=== PATIENT | male | born 1965 | race Caucasian/White ===

== ENCOUNTER 2017-07-25 09:33 | Inpatient (IN) ==
[2017-07-25 10:45] VITALS: BMI 27.5
[2017-07-25] MEDS ORDERED: VANCOMYCIN - PHARMACY CONSULT MC ONE (12:11)
--- NOTE | 2017-07-25 13:03 | Consult Note ---
<Sangeetha Knight V - Last Filed: 07/25/17 13:00> Consult Information - Data of Consult Consult date: 07/25/17 Requesting Physician: Kin Giron MD Primary Care Provider: None Family Provider: None - Consult Narrative Reason for consult: Medical management chronic tobacco and ETOH use History of present illness: Donovan is a 52 -year-old male who underwent a right great toe amputation through the MTP joint for chronic osteomyelitis under the care of Dr. Giron on 07/13/17. Postoperatively, he has been on Augmentin for further antimicrobial coverage. He has been following up outpatient at the wound center under the care of Dr. Giron and Dr. Scott. Today he presented to the orthopedic clinic for scheduled follow-up appointment with Barrett Paula. There was noted to be presence of increased drainage, swelling and erythema at the right great toe site. Foot was noted to have a foul odor. Given these changes. Patient was admitted directly under the care of Dr. Giron for further inpatient evaluation and treatment. The hospitalist services were consulted medical management of existing comorbidities. Patient is seen on initial consultation. He is alert, oriented and pleasant. He states he does not follow with any local primary care providers. He reports his only chronic medical condition. His neuropathy. He is a daily alcohol drinker as well as thirty-year history of tobacco dependence. [facility] Patient Stated Medical History Peripheral Neuropathy Hypertension- ? Chronic tobacco dependence Daily alcohol use Surgical History: Amputation Rt Big Toe 07-13-17 ([place]) Family History: Family History Mother- Alive and well Father Dementia Heart attack High blood pressure - Social History Smoking status: Current every day smoker Packs-years: 30 Substance use type: marijuana (occasional) Alcohol intake: current Alcohol intake frequency: 3 or more drinks per day Housing: house Social history: No PCP Review of Systems All systems PM: 10-point ROS was reviewed, no additional remarkable complaints except - Musculoskeletal Musculoskeletal: Present: as per HPI Musculoskeletal Comments: Right great toe- swelling, redness Medications Home Medications Medication Instructions Recorded Confirmed Type Multivitamin [One Daily] 1 each PO DAILY 07/04/17 07/25/17 History Allergies Allergy/AdvReac Type Severity Reaction Status Date / Time No Known Allergies Allergy Verified 07/25/17 10:46 Exam Vital Signs: Temperature 97.9 F 07/25/17 10:48 Pulse Rate 75 07/25/17 10:48 Respiratory Rate 16 07/25/17 10:48 Blood Pressure 161/95 H 07/25/17 10:48 Pulse Oximetry 99 07/25/17 10:48 Height/Weight/BMI: Height 1.83 m Weight 92.1 kg Body Mass Index 27.5 - Constitutional Present: no acute distress, well nourished, well developed - Routine HEENT Exam Eye: Present: EOMI ENT: Present: mucous membranes moist, dentition normal - Routine Neck Exam Present: full ROM - Routine Respiratory Exam Present: CTA bilaterally. Absent: wheezes - Routine Cardiovascular Exam Present: RRR, S1, S2. Absent: murmur - Routine Abdominal Exam Present: soft, normoactive bowel sounds, non distended. Absent: tenderness - Routine Extremities Exam Present: pulses intact, normal capillary refill Comments: Right great toe with dressing intact. - Routine Back/Spine/Pelvis Exam Back/Spine: Present: full ROM - Routine Skin Exam Present: intact, dry, warm - Routine Neurological Exam Present: alert, oriented X3, CN II-XII intact - Routine Psychiatric Exam Present: normal affect Results - Labs CBC & Chem 7: 07/25/17 12:05 07/25/17 12:05 Microbiology Results: Microbiology 07/25/17 12:05 Peripheral/Iv Start Blood Culture - Preliminary Culture Initiated - Results Pending 07/25/17 12:08 Peripheral/Iv Start Blood Culture - Preliminary Culture Initiated - Results Pending Assessment and Plan (1) Status post amputation of great toe Current visit: Yes Status: Acute (2) Wound infection Current visit: Yes Status: Acute DVT Prophylaxis: SCD's Resuscitation Status: Full Code Assessment and Plan: Impression Wound Infection- Right great toe S/P Right great toe amputation- 07/13/17 Neuropathy Chronic tobacco dependence Daily alcohol use Plan Orthopedic management as per Dr. Giron Obtain CBC, CMP, blood culture 2, venous lactate, pro calcitonin, Hgb A1C and urinalysis on admission. Will initiate antibiotic coverage including vancomycin and cefepime. Wound culture reviewed from 07/13 that was positive for Pseudomonas and Corynebacterium species. Old culture from April 2017 was positive for both strep and staph. Honeydew as needed for pain control Nicotine patch topically in light of chronic tobacco use. Monitor for evidence of ETOH withdrawal. Patient is a daily drinker however denies any history of withdrawal symptoms. NPO after midnight as Dr Giron is planning further surgical evaluation and wound care. Recheck CBC and BMP tomorrow morning to follow blood counts, renal function and electrolytes. Will consult CM to assist with establishing care with PCP in the outpatient setting. Hospital Course Summary Disclaimer: The visit summary below is not to be considered part of the above Progress Note. Hospital Course: 07/25/17 Impression Wound Infection- Right great toe S/P Right great toe amputation- 07/13/17 Neuropathy Chronic tobacco dependence Daily alcohol use Plan Orthopedic management as per Dr. Giron Obtain CBC, CMP, blood culture 2, venous lactate, pro calcitonin, Hgb A1C and urinalysis on admission. Will initiate antibiotic coverage including vancomycin and cefepime. Wound culture reviewed from 07/13 that was positive for Pseudomonas and Corynebacterium species. Old culture from April 2017 was positive for both strep and staph. Honeydew as needed for pain control Nicotine patch topically in light of chronic tobacco use. Monitor for evidence of ETOH withdrawal. Patient is a daily drinker however denies any history of withdrawal symptoms. NPO after midnight as Dr Giron is planning further surgical evaluation and wound care. Recheck CBC and BMP tomorrow morning to follow blood counts, renal function and electrolytes. Will consult CM to assist with establishing care with PCP in the outpatient setting. <Roc Green - Last Filed: 07/25/17 14:48> Consult Information - Data of Consult Requesting Physician: Kin Giron MD [facility] Patient Stated Medical History Peripheral Neuropathy Yes Hypertension Yes: pre op Chronic Obstructive Pulmonary Yes: presssumptive. patient hoarseness Disease (COPD) Sleep Apnea No Other Respiratory Yes: sinus congestion with seasonal allergies Other GI Yes: poss umbilical hernia Other Musculoskeletal Yes: chronic non healing wound to left great toe Cellulitis Yes MRSA Yes: possibly this wound Family History: Family History (Last Reviewed 07/25/17 @ 09:51 by DAVEY Puente) Father Dementia Heart attack High blood pressure Exam Vital Signs: Temperature 97.9 F 07/25/17 10:48 Pulse Rate 75 07/25/17 10:48 Respiratory Rate 16 07/25/17 10:48 Blood Pressure 161/95 H 07/25/17 10:48 Pulse Oximetry 99 07/25/17 10:48 Height/Weight/BMI: Height 1.83 m Weight 92.1 kg Body Mass Index 27.5 Results - Labs CBC & Chem 7: 07/25/17 12:05 07/25/17 12:05 Microbiology Results: Microbiology 07/25/17 12:05 Peripheral/Iv Start Blood Culture - Preliminary Culture Initiated - Results Pending 07/25/17 12:08 Peripheral/Iv Start Blood Culture - Preliminary Culture Initiated - Results Pending Assessment and Plan (1) Status post amputation of great toe Current visit: Yes Status: Acute (2) Wound infection Current visit: Yes Status: Acute DVT Prophylaxis: SCD's Resuscitation Status: Full Code Assessment and Plan: Impression Wound Infection- Right great toe S/P Right great toe amputation- 07/13/17 Neuropathy Chronic tobacco dependence Daily alcohol use Elevated blood pressure Overweight with BMI 27.5 Have independently interviewed and examined pt. Chart reviewed. Case discussed with my FOOT ORTHOPEDIST. Above care plan developed with my supervision; agree with above. Having drainage from toe amputation for past 4 days. Initially was doing well with wound post amputation. Over the weekend on 07/21-07/22 went out to a football game. Up on feet more and more walking; feels he may have over did it. Since then notes some increased discomfort, but minimal pain. Drainage started and is increasing. No f/c. No pain or redness moving up right leg. Breathing stable. No chest pressure or pain. Eating well. Stools slightly loose since on antibiotics. Urinating well. Lungs: decreased, no distress CV: regular AB: soft nt/nd +BS EXT: no edema. Amputation site of right great toe red and swollen, drainage noted. Very foul smelling. MSE: awake alert appropriate Plan: Cefepime and vancomycin initiated imperially for coverage. Anticipate surgical exploration of wound tomorrow-pt medically stable for procedure. IS to help pulmonary toilet. Initiate Culturelle to decrease risk for diarrhea. PRN laxatives added. With chronic ETOH use, will start routine thiamine and folic acid. Routine Serax 15mg at night; lorazepam prn anxiety/agitation. RT for tobacco cessation. SCD for DVT prevention. Tylenol for minor pain. Monitor blood pressure - elevation noted at admission. Will follow with Dr Giron during hospitalization. Hospital Course Summary Disclaimer: The visit summary below is not to be considered part of the above Progress Note.
[2017-07-25] MEDS: NICOTINE 21 MG PATCH TD SCH (13:58)
--- NOTE | 2017-07-25 14:06 | Pharmacy Consult-Antibiotics ---
Pharmacy Consult-Vancomycin - Laboratory Information WBC 9.4 T/MM3 (4.5-11.0) 07/25/17 12:05 BUN 15.0 MG/DL (9-20) 07/25/17 12:05 Creatinine 0.7 MG/DL (0.8-1.5) L 07/25/17 12:05 Procalcitonin < 0.05 NG/ML 07/25/17 12:05 MG is a 52 -year-old male who underwent a right great toe amputation through the MTP joint for chronic osteomyelitis under the care of Dr. Giron on 07/13/17. Postoperatively, he has been on Augmentin for further antimicrobial coverage. He has been following up as an outpatient at the wound center under the care of Dr. Giron and Dr. Scott. Today he presented to the orthopedic clinic for scheduled follow-up appointment with Barrett Paula. There was noted to be presence of increased drainage, swelling and erythema at the right great toe site. The foot was noted to have a foul odor. Given these changes the Patient was admitted directly under the care of Dr. Giron for further inpatient evaluation and treatment. The hospitalist services were consulted medical management of existing comorbidities. He was alert, oriented and pleasant. He stated he does not follow with any local primary care providers. He reported his only chronic medical condition is neuropathy. He is a daily alcohol drinker as well as thirty-year history of tobacco dependence. S Cr = 0.7 mg/mL Estimated Cr Cl = 125 mL/min WBC's = 9.4 T/mm3 PCT = 0.5 Lactate = 2.0 Using the pharmacokinetic program, I am ordering a Vancomycin bolus of 2,000 mg then followed by Vancomycin 1.750 mg iv every 8 hours thereafter. The estimated vancomycin trough should be around 17.5 mcg/mL. I have ordered a vancomycin trough before the 07/26 1400 dose. The pharmacy will continue to monitor the renal function and the vancomycin troughs and adjust the vancomycin accordingly. Thanks for the Vancomycin Protocol, Al Mclean, Pharmacist
[2017-07-25] MEDS: NS FLUSH BAG 500ml IV PRN (14:12)
[2017-07-25] MEDS ORDERED: BISACODYL 10 MG SUPPOSITORY RECTALLY PRN (14:25)
[2017-07-25] MEDS ORDERED: POLYETHYL GLYCOL 3350 17gm PACKET PO PRN (14:26)
[2017-07-25] MEDS ORDERED: ONDANSETRON 4 MG/2 ML INJECTION IVP PRN (14:26)
[2017-07-25] MEDS ORDERED: ACETAMINOPHEN 325 MG TABLET PO PRN (14:28)
[2017-07-25] MEDS: FOLIC ACID 1 MG TABLET PO SCH (15:07)
[2017-07-25] MEDS: LACTOBACILLUS (15B cfu) CAPSULE PO SCH (17:03)
[2017-07-25] MEDS: CEFEPIME 1 GM in NS 100 ML IV SCH (17:03)
[2017-07-25] MEDS ORDERED: DiphenhydrAMINE 50 MG/ML INJECTION IVP PRN (21:19)
[2017-07-25] MEDS: OXAZEPAM 15 MG CAPSULE PO SCH (22:14)
[2017-07-26] MEDS: CEFEPIME 1 GM in NS 100 ML IV SCH ×5 (00:39→22:01)
[2017-07-26] MEDS: LACTOBACILLUS (15B cfu) CAPSULE PO SCH ×3 (08:27→17:51)
[2017-07-26] MEDS: FOLIC ACID 1 MG TABLET PO SCH (08:27)
[2017-07-26] MEDS: NICOTINE 21 MG PATCH TD SCH (08:28)
[2017-07-26] MEDS: NICOTINE PATCH REMOVAL TD SCH (08:28)
[2017-07-26] MEDS: LR 1,000 ML IV SCH (13:05)
--- NOTE | 2017-07-26 13:30 | Anesthesia Preoperative Report ---
Anesthesia Preoperative Record - Date and Time Date: 07/26/17 Preoperative Diagnosis: Right Great Toe Infection Proposed Procedure: I AND D OF RIGHT GREAT TOE WITH WOUND VAC PLACEMENT NPO Since Date: 07/26/17 NPO Since Time: 00:00 Allergies/Adverse Reactions: Allergies Allergy/AdvReac Type Severity Reaction Status Date / Time No Known Allergies Allergy Verified 07/25/17 10:46 - Vital Signs Vital Signs: Temperature 98.5 F 07/26/17 13:00 Pulse Rate 72 07/26/17 13:04 Respiratory Rate 20 07/26/17 13:00 Blood Pressure 181/87 H 07/26/17 13:00 Pulse Oximetry 97 07/26/17 13:00 Height and Weight: Height 1.83 m Weight 92.5 kg Body Mass Index 27.5 - Medications Inpatient Medications: Current Medications Acetaminophen (Tylenol) 650 mg PO Q5H PRN PRN Reason: Discomfort Hydrocodone Bitart/Acetaminophen ([place] 7.5/325) 1 tab PO Q4H PRN PRN Reason: Pain Bisacodyl (Dulcolax) 10 mg RECTALLY DAILY PRN PRN Reason: Constipation Diphenhydramine HCl (Benadryl) 25 mg IVP Q6HR PRN PRN Reason: Allergy symptoms Last Admin: 07/25/17 21:23 Dose: 25 mg Folic Acid (Folate) 1 mg PO DAILY [facility] Last Admin: 07/26/17 08:27 Dose: Not Given Cefepime HCl 1 gm/ Sodium (Chloride) 100 mls @ 200 mls/hr IV Q6HR [facility] Last Infusion: 07/26/17 09:46 Dose: Infused Vancomycin HCl 1,750 mg/ (Sodium Chloride) 500 mls @ 250 mls/hr IV Q8H [facility] Last Infusion: 07/26/17 08:45 Dose: Infused Lactated Ringer's (Lactated Ringers) 1,000 mls @ 50 mls/hr IV .Q20H [facility] Last Admin: 07/26/17 13:05 Dose: 50 mls/hr Lactobacillus Acidophilus (Culturelle) 1 cap PO TIDWM [facility] Last Admin: 07/26/17 12:40 Dose: Not Given Lorazepam (Ativan Inj) 0.5 mg IVP Q4H PRN PRN Reason: Anxiety/Restlessness Magnesium Hydroxide (Mom) 30 ml PO DAILY PRN PRN Reason: Constipation Nicotine (Nicoderm) 21 mg TD DAILY [facility] Last Admin: 07/26/17 08:28 Dose: Not Given Nicotine (Nicotine Patch Removal) 1 removal TD DAILY [facility] Last Admin: 07/26/17 08:28 Dose: Not Given Ondansetron HCl (Zofran) 4 mg IVP Q6H PRN PRN Reason: Nausea Oxazepam (Serax) 15 mg PO HS [facility] Last Admin: 07/25/17 22:14 Dose: 15 mg Polyethylene Glycol (Miralax) 17 gm PO DAILY PRN PRN Reason: Constipation Sodium Chloride (Normal Saline) 500 ml IV PRN PRN Last Admin: 07/25/17 14:12 Dose: 500 ml Thiamine HCl (Vitamin B-1) 100 mg PO DAILY [facility] Last Admin: 07/26/17 08:28 Dose: Not Given Home Medications: Home Medications Medication Instructions Recorded Confirmed Type Multivitamin [One Daily] 1 each PO DAILY 07/04/17 07/25/17 History Is Patient on Beta Huber?: No - Social History Smoking Status: Current every day smoker Packs per day: 1 Pack-years: 30 Substance Use Type: marijuana (occasional) Alcohol Intake: current Alcohol Intake Frequency: 3 or more drinks per day - Pertinent Findings Laboratory: CBC and BMP 07/26/17 04:18 07/26/17 04:18 BMP 07/26/17 04:18 Sodium 142 Potassium 4.1 Chloride 106 Carbon Dioxide 28 BUN 12.0 Creatinine 0.8 Glucose 87 Calcium 9.4 EKG: Sinus Rhythm - Physical Exam Respiratory Exam: Present: lungs clear Cardiovascular Exam: Present: regular rate and rhythm - Airway Assessment Mallampati Score: II Overall Assessment: no airway concerns - ASA ASA Score: 2 - Plan Anesthesia: General TIVA, General Inhalation Gases - Discussion Discussion: Discussed risks/options/alternatives of anesthesia and questions answered. Patient consents. Nursing pain assessment noted. Attestation Statement: Prior to the delivery of any anesthetic medication, I examined the patient, developed the plan, obtained the patient's consent and discussed the risk and benefits of the procedure with the patient/guardian. - Additional Information Seen by Anesthesia: Yes
[2017-07-26] MEDS ORDERED: FentaNYL 100 MCG/2 ML INJECTION ONE (13:42)
[2017-07-26] MEDS ORDERED: METOCLOPRAMIDE 10mg/2ml INJECTION IVP PRN (14:27)
[2017-07-26] MEDS ORDERED: ONDANSETRON 4 MG/2 ML INJECTION IVP PRN (14:27)
--- NOTE | 2017-07-26 14:29 | Anesthesia Postoperative Note ---
- Status Vital Signs: Temperature 98.4 F 07/26/17 14:18 Pulse Rate 74 07/26/17 14:18 Respiratory Rate 16 07/26/17 14:18 Blood Pressure 133/65 07/26/17 14:18 Pulse Oximetry 99 07/26/17 14:18 Complications During Recover: None Apparent - Follow-Up Instructions Instructions: Per Surgeon
[2017-07-26] MEDS: HYDROMORPHONE 2 MG/ML INJECTION IVP PRN ×2 (14:33→14:43)
--- NOTE | 2017-07-26 15:26 | Pharmacy Consult-Antibiotics ---
Pharmacy Consult-Vancomycin - Laboratory Information WBC 6.5 T/MM3 (4.5-11.0) 07/26/17 04:18 BUN 12.0 MG/DL (9-20) 07/26/17 04:18 Creatinine 0.8 MG/DL (0.8-1.5) 07/26/17 04:18 Procalcitonin < 0.05 NG/ML 07/25/17 12:05 Vancomycin Trough 19.46 UG/ML (15-20) 07/26/17 13:06 MG is a 52 -year-old male who underwent a right great toe amputation through the MTP joint for chronic osteomyelitis under the care of Dr. Giron on 07/13/17. Postoperatively, he has been on Augmentin for further antimicrobial coverage. He has been following up as an outpatient at the wound center under the care of Dr. Giron and Dr. Scott. Today he presented to the orthopedic clinic for scheduled follow-up appointment with Barrett Paula. There was noted to be presence of increased drainage, swelling and erythema at the right great toe site. The foot was noted to have a foul odor. Given these changes the Patient was admitted directly under the care of Dr. Giron for further inpatient evaluation and treatment. The hospitalist services were consulted medical management of existing comorbidities. He was alert, oriented and pleasant. He stated he does not follow with any local primary care providers. He reported his only chronic medical condition is neuropathy. He is a daily alcohol drinker as well as thirty-year history of tobacco dependence. S Cr = 0.8 mg/mL Estimated Cr Cl = 110 mL/min WBC's = 6.5 T/mm3 Vanco trough 19.46 Tmax 24 hr = 98.5 degrees F PCT = 0.5 Lactate = 2.0 Using the pharmacokinetic program, I need to change the Vancomycin to 1,500 mg iv every 8 hours @ 2200 tonight (07/26) and thereafter. The estimated vancomycin trough should be around 19.1 mcg/mL. The pharmacy will continue to monitor the renal function and the vancomycin troughs and adjust the vancomycin accordingly. Thanks for the Vancomycin Protocol, Al Mclean, Pharmacist
[2017-07-26] MEDS: HYDROCODONE/APAP 7.5 MG/325 MG TABLET PO PRN ×2 (15:41→20:04)
--- NOTE | 2017-07-26 16:41 | Progress Note ---
Subjective: F/U: Wound infection Had wound debridement and wound vac placement this afternoon. Tolerated surgery well. Notes some pain and throbbing to toe. No pain up in leg. Not feeling fevers or chills. Denies nausea or ab pain. Urinating well. Breathing well. Did have some lip swelling yesterday evening-Tele hospitalist order IV Benadryl. Symptoms resolved and have not returned. Tolerating antibiotics well. Objective Vital signs: Temperature 97.3 F 07/26/17 15:30 Pulse Rate 62 07/26/17 16:00 Respiratory Rate 18 07/26/17 15:30 Blood Pressure 179/86 H 07/26/17 16:00 Pulse Oximetry 96 07/26/17 16:00 Height/Weight/BMI: Height 1.83 m Weight 92.5 kg Body Mass Index 27.5 - Constitutional Present: well nourished, well developed, average body habitus, cooperative - Routine HEENT Exam Head: Present: normocephalic, atraumatic Eye: Present: EOMI, PERRL ENT: Present: mucous membranes moist - Routine Respiratory Exam Present: CTA bilaterally. Absent: rales, respiratory distress, rhonchi, stridor , wheezes, crackles - Routine Cardiovascular Exam Present: RRR, no murmur - Routine Abdominal Exam Present: soft, normoactive bowel sounds, non distended, non tender - Routine Extremities Exam Present: no edema, pulses intact. Absent: cyanosis, clubbing Comments: SCD in place - Routine Musculoskeletal Exam Musculoskeletal: Present: no clubbing or cyanosis, normal strength - Routine Skin Exam Present: dry, warm, normal turgor, wounds (Wound to amputation sight of right great toe with wound vac ) - Routine Neurological Exam Present: alert, oriented X3, CN II-XII intact, vision grossly intact, hearing grossly intact. Absent: motor deficit - Routine Psychiatric Exam Present: normal affect, normal thought process, cooperative, good insight, good judgment. Absent: anxious, agitated Results - Labs CBC & Chem 7: 07/26/17 04:18 07/26/17 04:18 Microbiology Results: Microbiology 07/26/17 13:56 Foot, Right Tissue Surgical Culture - Preliminary Culture Initiated - Results Pending 07/25/17 12:05 Peripheral/Iv Start Blood Culture - Preliminary No Growth After 1 Day 07/25/17 12:08 Peripheral/Iv Start Blood Culture - Preliminary No Growth After 1 Day Assessment and Plan (1) Status post amputation of great toe Current visit: Yes Status: Acute (2) Wound infection Current visit: Yes Status: Acute DVT Prophylaxis: SCD's Assessment and Plan: Impression Wound Infection- Right great toe Wound debridement and wound vac placement 07/26/17 S/P Right great toe amputation- 07/13/17 Neuropathy Chronic tobacco dependence Daily alcohol use Elevated blood pressure Overweight with BMI 27.5 Plan Continue with wound vac to facilitate wound healing. Continue cefepime and vancomycin for antimicrobial coverage. Serax 15mg started last night due to his chronic ETOH use. Lorazepam prn. Monitor for withdrawal. Start Norvasc 5mg daily as BP with elevation. Culturelle started yesterday to help decrease risk for diarrhea. Encourage working on tobacco cessation - has nicotine patch, not sure if helping much. Possible taper in near future. Monitor for post op nausea. Zofran available prn. Continue with supportive post op care. Hospital Course Summary Disclaimer: The visit summary below is not to be considered part of the above Progress Note. Hospital Course: 07/25/17 Admission Impression Wound Infection- Right great toe S/P Right great toe amputation- 07/13/17 Neuropathy Chronic tobacco dependence Elevated blood pressure Daily alcohol use Plan Orthopedic management as per Dr. Giron Obtain CBC, CMP, blood culture 2, venous lactate, pro calcitonin, Hgb A1C and urinalysis on admission. Will initiate antibiotic coverage including vancomycin and cefepime. Wound culture reviewed from 07/13 that was positive for Pseudomonas and Corynebacterium species. Old culture from April 2017 was positive for both strep and staph. [place] as needed for pain control Nicotine patch topically in light of chronic tobacco use. Monitor for evidence of ETOH withdrawal. Patient is a daily drinker however denies any history of withdrawal symptoms. NPO after midnight as Dr Giron is planning further surgical evaluation and wound care. Recheck CBC and BMP tomorrow morning to follow blood counts, renal function and electrolytes. Will consult CM to assist with establishing care with PCP in the outpatient setting. 07/26/17 OP DAY Continue with wound vac to facilitate wound healing. Continue cefepime and vancomycin for antimicrobial coverage. Serax 15mg started last night due to his chronic ETOH use. Lorazepam prn. Monitor for withdrawal. Start Norvasc 5mg daily as BP with elevation. Culturelle started yesterday to help decrease risk for diarrhea. Encourage working on tobacco cessation - has nicotine patch, not sure if helping much. Possible taper in near future. Monitor for post op nausea. Zofran available prn. Continue with supportive post op care.
--- NOTE | 2017-07-26 16:42 | Operative Note ---
DATE OF OPERATION 07/26/2017 PREOPERATIVE DIAGNOSIS Right great toe amputation site infection. POSTOPERATIVE DIAGNOSIS Right great toe amputation site infection. PROCEDURE Irrigation and debridement and wound VAC placement to right great toe amputation site. SURGEON Kin Giron MD [employer] Barrett Valerio PA-C COMPLICATIONS None ANESTHESIA TIVA with LMA DESCRIPTION OF PROCEDURE Mr. Martinez and his right foot were identified and marked in the preoperative holding area. He was brought back to the operating suite and placed supine on the operating table. He was placed under general anesthesia. The right lower extremity was prepped and draped in my normal sterile fashion. Time-out was performed. I began by assessing the wound. The amputation site was approximately 3 cm. The middle 1 cm had opened up and there was actively pustulous material draining from it. I went ahead and opened up the rest of the incision sharply. I milked some of the fluid out of the wound. I then took some deep soft tissue with a rongeur to send for cultures. I then proceeded with milking maneuver and there was what seemed to be an abscess plantarly, plantar to the first metatarsal head. Once I felt all of this was removed by manual milking, I then used a pulse lavage and irrigated the wound with 3 liters of normal saline. Once this was completed, I assessed the wound. There was no active bleeding and no necrotic deep tissue that needed removed. I then placed a black sponge within the wound and hooked it to a wound VAC. It achieved a good suction at 125 mmHg without any signs of leak. The drapes were then removed. He was allowed to awake from general anesthesia and taken to the recovery room under the care of anesthesia. He tolerated the procedure well and there were no complications. CITLALY
[2017-07-26] MEDS: AMLODIPINE 5 MG TABLET PO SCH (17:51)
[2017-07-26] MEDS: OXAZEPAM 15 MG CAPSULE PO SCH (20:04)
[2017-07-27] MEDS: HYDROMORPHONE 2 MG/ML INJECTION IVP PRN (02:10)
[2017-07-27] MEDS: CEFEPIME 1 GM in NS 100 ML IV SCH ×4 (02:59→21:29)
--- NOTE | 2017-07-27 09:06 | Progress Note ---
<Sangeetha Knight V - Last Filed: 07/27/17 08:58> Subjective: Donovan is seen this morning in follow up. Wound Vac present to right great toe. Fact did have to be replaced overnight as it was having leaking. He reports having some mild pain to the foot this morning. Denies feeling short of breath or having chest pain. Staff reported some bradycardia down to 44. Bp elevated 161/76. Objective Vital signs: Temperature 98.3 F 07/27/17 08:37 Pulse Rate 79 07/27/17 08:37 Respiratory Rate 15 07/27/17 08:37 Blood Pressure 161/76 H 07/27/17 08:37 Pulse Oximetry 96 07/27/17 08:37 Height/Weight/BMI: Height 1.83 m Weight 93 kg Body Mass Index 27.5 - Constitutional Present: no acute distress, well nourished, well developed - Routine HEENT Exam Eye: Present: EOMI ENT: Present: mucous membranes moist, dentition normal - Routine Respiratory Exam Present: CTA bilaterally. Absent: wheezes - Routine Cardiovascular Exam Present: RRR, S1, S2. Absent: murmur - Routine Abdominal Exam Present: soft, normoactive bowel sounds, non distended. Absent: tenderness - Routine Extremities Exam Present: normal capillary refill Comments: Right foot wound Vac - Routine Skin Exam Present: dry, warm - Routine Neurological Exam Present: alert, oriented X3, CN II-XII intact - Routine Lymphatic Exam Lymphatic: Absent: adenopathy - Routine Psychiatric Exam Present: normal affect, cooperative Results - Labs CBC & Chem 7: 07/26/17 04:18 07/26/17 04:18 Microbiology Results: Microbiology 07/26/17 13:56 Foot, Right Tissue Gram Stain - Final 07/26/17 13:56 Foot, Right Tissue Surgical Culture - Preliminary Early growth 07/25/17 12:05 Peripheral/Iv Start Blood Culture - Preliminary No Growth After 1 Day 07/25/17 12:08 Peripheral/Iv Start Blood Culture - Preliminary No Growth After 1 Day Assessment and Plan (1) Status post amputation of great toe Current visit: Yes Status: Acute (2) Wound infection Current visit: Yes Status: Acute Assessment and Plan: Impression Wound Infection- Right great toe Wound debridement and wound vac placement 07/26/17 S/P Right great toe amputation- 07/13/17 Neuropathy Chronic tobacco dependence Daily alcohol use Elevated blood pressure Overweight with BMI 27.5 Plan Continue cefepime and vancomycin for antimicrobial coverage wound culture positive for Pseudomonas sensitive to Cefepime Wound Vac placed 07/[address] Giron to assist with wound healing Serax 15mg for alcohol withdrawal. No evidence of acute symptoms Given elevated Bp. Norvasc was started last evening. BP this morning 161/76. May need to increase dose. Encourage working on tobacco cessation. Nicotine patch topically Labs stable Discuss with CM regarding discharge plan with wound vac Hospital Course Summary Disclaimer: The visit summary below is not to be considered part of the above Progress Note. Hospital Course: 07/25/17 Admission Impression Wound Infection- Right great toe S/P Right great toe amputation- 07/13/17 Neuropathy Chronic tobacco dependence Elevated blood pressure Daily alcohol use Plan Orthopedic management as per Dr. Giron Obtain CBC, CMP, blood culture 2, venous lactate, pro calcitonin, Hgb A1C and urinalysis on admission. Will initiate antibiotic coverage including vancomycin and cefepime. Wound culture reviewed from 07/13 that was positive for Pseudomonas and Corynebacterium species. Old culture from April 2017 was positive for both strep and staph. [place] as needed for pain control Nicotine patch topically in light of chronic tobacco use. Monitor for evidence of ETOH withdrawal. Patient is a daily drinker however denies any history of withdrawal symptoms. NPO after midnight as Dr Giron is planning further surgical evaluation and wound care. Recheck CBC and BMP tomorrow morning to follow blood counts, renal function and electrolytes. Will consult CM to assist with establishing care with PCP in the outpatient setting. 07/26/17 OP DAY Continue with wound vac to facilitate wound healing. Continue cefepime and vancomycin for antimicrobial coverage. Serax 15mg started last night due to his chronic ETOH use. Lorazepam prn. Monitor for withdrawal. Start Norvasc 5mg daily as BP with elevation. Culturelle started yesterday to help decrease risk for diarrhea. Encourage working on tobacco cessation - has nicotine patch, not sure if helping much. Possible taper in near future. Monitor for post op nausea. Zofran available prn. Continue with supportive post op care. 07/27/17 Plan Continue cefepime and vancomycin for antimicrobial coverage wound culture positive for Pseudomonas sensitive to Cefepime Wound Vac placed 07/[address] Giron to assist with wound healing Serax 15mg for alcohol withdrawal. No evidence of acute symptoms Given elevated Bp. Norvasc was started last evening. BP this morning 161/76. May need to increase dose. Encourage working on tobacco cessation. Nicotine patch topically Labs stable Discuss with CM regarding discharge plan with wound vac <Roc Green - Last Filed: 07/27/17 14:03> Objective Vital signs: Temperature 97.3 F 07/27/17 11:14 Pulse Rate 66 07/27/17 11:14 Respiratory Rate 18 07/27/17 11:14 Blood Pressure 141/77 H 07/27/17 11:14 Pulse Oximetry 97 07/27/17 11:14 Height/Weight/BMI: Height 1.83 m Weight 92.079 kg Body Mass Index 27.5 Results - Labs CBC & Chem 7: 07/26/17 04:18 07/26/17 04:18 Microbiology Results: Microbiology 07/25/17 12:05 Peripheral/Iv Start Blood Culture - Preliminary No Growth After 2 Days 07/25/17 12:08 Peripheral/Iv Start Blood Culture - Preliminary No Growth After 2 Days 07/26/17 13:56 Foot, Right Tissue Gram Stain - Final 07/26/17 13:56 Foot, Right Tissue Surgical Culture - Preliminary Early growth Assessment and Plan (1) Status post amputation of great toe Current visit: Yes Status: Acute (2) Wound infection Current visit: Yes Status: Acute DVT Prophylaxis: SCD's, Lovenox Assessment and Plan: Impression Wound Infection- Right great toe Wound debridement and wound vac placement 07/26/17 S/P Right great toe amputation- 07/13/17 Neuropathy Chronic tobacco dependence Daily alcohol use HTN - elevated blood pressure Overweight with BMI 27.5 Have independently interviewed and examined pt. Chart reviewed. Case discussed with my [employer]. Above care plan developed with my supervision; agree with above. Doing well. Minimal pain to foot. Breathing well-not SOA or congested. Eating well-no ab pain. Denies loose stools-stools slow. No f/c. Lungs: clear bilaterally CV: regular AB: soft nt/nd +BS EXT: wound vac on R toe amputation site. MSE: awake alert appropriate Plan: Continue with antibiotics - wound culture with early growth, but nothing reportable. Continue with wound vac. Norvasc to help blood pressure. Continue SCD-add Lovenox to augment DVT prevention. Hospital Course Summary Disclaimer: The visit summary below is not to be considered part of the above Progress Note.
--- NOTE | 2017-07-27 09:20 | Orthopedic Progress Note ---
Date: Subjective/Severity of Illness: No new complaints in regard to the wound site. The wound VAC was changed last night because of clots. It is functioning well this morning. Orthopedic Objective Vital signs: Temperature 98.3 F 07/27/17 08:37 Pulse Rate 79 07/27/17 08:37 Respiratory Rate 15 07/27/17 08:37 Blood Pressure 161/76 H 07/27/17 08:37 Pulse Oximetry 96 07/27/17 08:37 Height and Weight: Height 6 ft Weight 93 kg Body Mass Index 27.5 - Lymphatic Lymphatic: Absent: adenopathy - Wound Management Right Great Toe Wound Type: Surgical Incision Primary Dressing: wound VAC - Labs Result Diagrams: 07/26/17 04:18 07/26/17 04:18 H & H 07/25/17 07/26/17 Range/Units 12:05 04:18 Hgb 13.8 13.7 (13.5-17.5) GM/DL Hct 41.4 42.1 (41-53) % Coagulation 07/25/17 Range/Units 12:05 INR 1.06 (0.99-1.21) Orthopedic Assessment and Plan (1) Status post amputation of great toe Status: Acute (2) Wound infection Status: Acute Assessment and Plan: Continue current antibiotics until cultures return. Continue wound VAC dressing. Plan on change wound VAC on Sunday. We'll reassess on Sunday if wound VAC as needed as an outpatient. - Anticoagulation Therapy Anticoagulation: Lovenox 40 mg SQ Daily x 30 days from day of surgery Hospital Course Summary Disclaimer: The visit summary below is not to be considered part of the above Progress Note. Hospital Course: 07/25/17 Admission Impression Wound Infection- Right great toe S/P Right great toe amputation- 07/13/17 Neuropathy Chronic tobacco dependence Elevated blood pressure Daily alcohol use Plan Orthopedic management as per Dr. Giron Obtain CBC, CMP, blood culture 2, venous lactate, pro calcitonin, Hgb A1C and urinalysis on admission. Will initiate antibiotic coverage including vancomycin and cefepime. Wound culture reviewed from 07/13 that was positive for Pseudomonas and Corynebacterium species. Old culture from April 2017 was positive for both strep and staph. [place] as needed for pain control Nicotine patch topically in light of chronic tobacco use. Monitor for evidence of ETOH withdrawal. Patient is a daily drinker however denies any history of withdrawal symptoms. NPO after midnight as Dr Giron is planning further surgical evaluation and wound care. Recheck CBC and BMP tomorrow morning to follow blood counts, renal function and electrolytes. Will consult CM to assist with establishing care with PCP in the outpatient setting. 07/26/17 OP DAY Continue with wound vac to facilitate wound healing. Continue cefepime and vancomycin for antimicrobial coverage. Serax 15mg started last night due to his chronic ETOH use. Lorazepam prn. Monitor for withdrawal. Start Norvasc 5mg daily as BP with elevation. Culturelle started yesterday to help decrease risk for diarrhea. Encourage working on tobacco cessation - has nicotine patch, not sure if helping much. Possible taper in near future. Monitor for post op nausea. Zofran available prn. Continue with supportive post op care. 07/27/17 Plan Continue cefepime and vancomycin for antimicrobial coverage wound culture positive for Pseudomonas sensitive to Cefepime Wound Vac placed 07/[address] Giron to assist with wound healing Serax 15mg for alcohol withdrawal. No evidence of acute symptoms Given elevated Bp. Norvasc was started last evening. BP this morning 161/76. May need to increase dose. Encourage working on tobacco cessation. Nicotine patch topically Labs stable Discuss with CM regarding discharge plan with wound vac
[2017-07-27] MEDS: ENOXAPARIN 40 MG/0.4 ML INJECTION SQ SCH (09:52)
[2017-07-27] MEDS: LACTOBACILLUS (15B cfu) CAPSULE PO SCH ×3 (09:53→18:56)
[2017-07-27] MEDS: AMLODIPINE 5 MG TABLET PO SCH (09:53)
[2017-07-27] MEDS: FOLIC ACID 1 MG TABLET PO SCH (09:54)
[2017-07-27] MEDS: NICOTINE PATCH REMOVAL TD SCH (10:01)
[2017-07-27] MEDS: NICOTINE 21 MG PATCH TD SCH (10:01)
[2017-07-27] MEDS: LR 1,000 ML IV SCH ×2 (10:20→15:26)
[2017-07-27] MEDS: HYDROCODONE/APAP 7.5 MG/325 MG TABLET PO PRN (19:15)
[2017-07-27] MEDS: OXAZEPAM 15 MG CAPSULE PO SCH (21:30)
[2017-07-28] MEDS: CEFEPIME 1 GM in NS 100 ML IV SCH ×4 (03:09→20:56)
--- NOTE | 2017-07-28 09:54 | Orthopedic Progress Note ---
Date: Subjective/Severity of Illness: Patient is doing well this morning. Already ate breakfast. No new complaints. No pain. Awaiting culture results for abx direction. Orthopedic Objective PO Vital signs: Temperature 98.7 F 07/28/17 04:00 Pulse Rate 68 07/28/17 08:00 Respiratory Rate 16 07/28/17 04:00 Blood Pressure 158/89 H 07/28/17 08:00 Pulse Oximetry 99 07/28/17 08:00 Height and Weight: Height 6 ft Weight 206 lb 2.115 oz Body Mass Index 27.5 - Constitutional General Appearance: Present: alert, orientated x3 - Respiratory Exam Present: non-labored - Cardiovascular Exam Capillary Refill: < 2-3 Seconds - Abdominal Exam Present: soft. Absent: tenderness - Extremities Exam Extremities: Absent: calf tenderness, Shirley's sign - Surgical Site Incision: clean, dry, intact - Integumentary Exam Comments: Wound vac to right great toe/foot. Appears to be functioning well. - Lymphatic Lymphatic: Absent: adenopathy - Wound Management Right Great Toe Wound Type: Amputation Primary Dressing: wound VAC - Labs Result Diagrams: 07/26/17 04:18 07/28/17 09:15 Abnormal lab results 07/28/17 Range/Units 09:15 Creatinine 0.7 L (0.8-1.5) MG/DL H & H 07/25/17 07/26/17 Range/Units 12:05 04:18 Hgb 13.8 13.7 (13.5-17.5) GM/DL Hct 41.4 42.1 (41-53) % Coagulation 07/25/17 Range/Units 12:05 INR 1.06 (0.99-1.21) Orthopedic Assessment and Plan (1) Status post amputation of great toe Status: Acute (2) Wound infection Status: Acute Assessment and Plan: Continue current antibiotics until cultures return. Continue wound VAC dressing. Plan on change wound VAC today. Dr. Giron to reassess on Sunday if wound VAC ss needed as an outpatient. - Anticoagulation Therapy Anticoagulation: Lovenox 40 mg SQ Daily x 30 days from day of surgery Hospital Course Summary Disclaimer: The visit summary below is not to be considered part of the above Progress Note. Hospital Course: 07/25/17 Admission Impression Wound Infection- Right great toe S/P Right great toe amputation- 07/13/17 Neuropathy Chronic tobacco dependence Elevated blood pressure Daily alcohol use Plan Orthopedic management as per Dr. Giron Obtain CBC, CMP, blood culture 2, venous lactate, pro calcitonin, Hgb A1C and urinalysis on admission. Will initiate antibiotic coverage including vancomycin and cefepime. Wound culture reviewed from 07/13 that was positive for Pseudomonas and Corynebacterium species. Old culture from April 2017 was positive for both strep and staph. [place] as needed for pain control Nicotine patch topically in light of chronic tobacco use. Monitor for evidence of ETOH withdrawal. Patient is a daily drinker however denies any history of withdrawal symptoms. NPO after midnight as Dr Giron is planning further surgical evaluation and wound care. Recheck CBC and BMP tomorrow morning to follow blood counts, renal function and electrolytes. Will consult CM to assist with establishing care with PCP in the outpatient setting. 07/26/17 OP DAY Continue with wound vac to facilitate wound healing. Continue cefepime and vancomycin for antimicrobial coverage. Serax 15mg started last night due to his chronic ETOH use. Lorazepam prn. Monitor for withdrawal. Start Norvasc 5mg daily as BP with elevation. Culturelle started yesterday to help decrease risk for diarrhea. Encourage working on tobacco cessation - has nicotine patch, not sure if helping much. Possible taper in near future. Monitor for post op nausea. Zofran available prn. Continue with supportive post op care. 07/27/17 Plan Continue cefepime and vancomycin for antimicrobial coverage wound culture positive for Pseudomonas sensitive to Cefepime Wound Vac placed 07/[address] Giron to assist with wound healing Serax 15mg for alcohol withdrawal. No evidence of acute symptoms Given elevated Bp. Norvasc was started last evening. BP this morning 161/76. May need to increase dose. Encourage working on tobacco cessation. Nicotine patch topically Labs stable Discuss with CM regarding discharge plan with wound vac
[2017-07-28] MEDS: HYDROCODONE/APAP 7.5 MG/325 MG TABLET PO PRN ×2 (09:55→18:28)
[2017-07-28] MEDS: AMLODIPINE 5 MG TABLET PO SCH (09:56)
[2017-07-28] MEDS: LACTOBACILLUS (15B cfu) CAPSULE PO SCH ×3 (09:56→17:17)
[2017-07-28] MEDS: FOLIC ACID 1 MG TABLET PO SCH (09:56)
[2017-07-28] MEDS: ENOXAPARIN 40 MG/0.4 ML INJECTION SQ SCH (09:58)
[2017-07-28] MEDS: NICOTINE 21 MG PATCH TD SCH (10:15)
[2017-07-28] MEDS: NICOTINE PATCH REMOVAL TD SCH (10:21)
[2017-07-28] MEDS: HYDROMORPHONE 2 MG/ML INJECTION IVP PRN (12:02)
--- NOTE | 2017-07-28 12:35 | Wound Care Progress Note ---
Wound Center Progress Note: Wound Vac Dressing change today, requested by Dr Giron. Patient is found in bed, rm 116, with NPWT intact and running continuously at 125mmHg. Per verbal orders, remove dressings, clean wound with wound cleanser, Measurements are 1 x 1.2 x 2.3 No tunnels or undermining 100% Red granulation tissue, No necrotic or devitalized tissue observed at this time [place] drainage (100mL observed in the canister) No bone or tendon observed Serial sharp debridements, may be required in the future, to be determined by Dr Giron No changes made to the treatment plan received. Per verbal orders, may apple stoma paste on periwound, duoderm on periwound, place [employer] black foam in wound bed, obtain good seal, place T.R.A.C. pad over foam on in wound, set continuous suction at 125mmHg.
--- NOTE | 2017-07-28 14:12 | Progress Note ---
<SangisraelAniya - Last Filed: 07/28/17 14:08> Subjective: Donovan is seen this morning in follow up for his right toe and foot infection. He is seen while sitting in his recliner, eating. He denies any current pain or concerns but does admit that he had significant pain this morning during his wound vac change. He denies any chest pain, shortness of breath, abdominal pain , nausea, vomiting or dysuria. He reports that his appetite is good and his bowels are moving. Review of his medical records and nursing notes indicates that overall he is doing well and making gains. No new labs today. Blood pressure remains elevated. He was started on Norvasc 5mg yesterday, 07/27/17. He proudly exclaims that he has not had a cigarette since admission and admits to only occasional cravings despite his refusal for the nicotine patch. He is encouraged to continue with his smoking cessation and possible outpatient treatment options such as Chantix and Wellbutrin were briefly discussed. He denies any increased anxiety, tremors or symptoms of alcohol withdrawal. Objective Vital signs: Temperature 97.9 F 07/28/17 11:42 Pulse Rate 65 07/28/17 11:42 Respiratory Rate 22 07/28/17 11:42 Blood Pressure 145/85 H 07/28/17 11:42 Pulse Oximetry 96 07/28/17 11:42 Rhythm: Sinus Bradycardia Cardiac Ectopy: Occasional PVC's Height/Weight/BMI: Height 6 ft Weight 206 lb 2.115 oz Body Mass Index 27.5 - Constitutional Present: no acute distress, well nourished, well developed, cooperative - Routine HEENT Exam Head: Present: normocephalic, atraumatic Eye: Present: PERRL. Absent: conjunctival icterus ENT: Present: mucous membranes moist - Routine Respiratory Exam Present: CTA bilaterally. Absent: stridor, wheezes, crackles - Routine Cardiovascular Exam Present: RRR, S1, S2 - Routine Abdominal Exam Present: soft, normoactive bowel sounds, non tender - Routine Extremities Exam Present: no edema, pulses intact Comments: wound vac noted to base of amputated right great toe/foot with serosangeous drainage; SCDs in place bilaterally. - Routine Back/Spine/Pelvis Exam Back/Spine: Present: full ROM - Routine Musculoskeletal Exam Musculoskeletal: Present: no tenderness, moving extremities well - Routine Skin Exam Present: dry, warm. Absent: jaundice Comments: afebrile. - Routine Neurological Exam Present: alert, oriented X3, moving all extremities, normal speech - Routine Lymphatic Exam Lymphatic: Absent: lymphedema - Routine Psychiatric Exam Present: normal affect, cooperative, good insight, good judgment Results - Labs CBC & Chem 7: 07/26/17 04:18 07/28/17 09:15 Microbiology Results: Microbiology 07/25/17 12:05 Peripheral/Iv Start Blood Culture - Preliminary No Growth After 3 Days 07/25/17 12:08 Peripheral/Iv Start Blood Culture - Preliminary No Growth After 3 Days 07/26/17 13:56 Foot, Right Tissue Gram Stain - Final 07/26/17 13:56 Foot, Right Tissue Surgical Culture - Preliminary Coag negative Staphylococcus Assessment and Plan (1) Status post amputation of great toe Current visit: Yes Status: Acute (2) Wound infection Current visit: Yes Status: Acute DVT Prophylaxis: SCD's, Lovenox Assessment and Plan: Assessment Wound Infection- Right great toe Wound debridement and wound vac placement 07/26/17. S/P Right great toe amputation- 07/13/17. Neuropathy, chronic. Chronic tobacco dependence. Daily alcohol use. HTN - elevated blood pressure. Overweight with BMI 27.5. Plan-07/28/17 Overall, the patient appears to be doing well and making gains. Wound vac changed to base of amputated right great toe/foot today at which time he admits to increased pain. Wound vac continues to drain serosanguineous drainage. Continue wound treatment per Dr. Giron and wound care team. Continue cefepime and vancomycin for antimicrobial treatment. Wound culture revealed coag negative staph. Blood cultures remain negative after 3 days. Oral intake is good. Will discontinue LR at 50cc/hr and continue to encourage oral intake. Continue to encourage smoking cessation. He has refused the nicotine patch. Discussed potential outpatient options including Chantix and/ or Wellbutrin to encourage continued smoking cessation. Will initiate Wellbutrin SR today and recommend continuation x8-12 weeks. Overall, he is doing well. Will recheck labs in AM to monitor blood counts, electrolytes and renal function. - Time spent with patient Time with patient PN: 35 minutes Coordination of Care: >50% of visit spent providing counseling/coordination of care Hospital Course Summary Disclaimer: The visit summary below is not to be considered part of the above Progress Note. Hospital Course: 07/25/17 Admission Impression Wound Infection- Right great toe S/P Right great toe amputation- 07/13/17 Neuropathy Chronic tobacco dependence Elevated blood pressure Daily alcohol use Plan Orthopedic management as per Dr. Giron Obtain CBC, CMP, blood culture 2, venous lactate, pro calcitonin, Hgb A1C and urinalysis on admission. Will initiate antibiotic coverage including vancomycin and cefepime. Wound culture reviewed from 07/13 that was positive for Pseudomonas and Corynebacterium species. Old culture from April 2017 was positive for both strep and staph. [place] as needed for pain control Nicotine patch topically in light of chronic tobacco use. Monitor for evidence of ETOH withdrawal. Patient is a daily drinker however denies any history of withdrawal symptoms. NPO after midnight as Dr Giron is planning further surgical evaluation and wound care. Recheck CBC and BMP tomorrow morning to follow blood counts, renal function and electrolytes. Will consult CM to assist with establishing care with PCP in the outpatient setting. 07/26/17 OP DAY Continue with wound vac to facilitate wound healing. Continue cefepime and vancomycin for antimicrobial coverage. Serax 15mg started last night due to his chronic ETOH use. Lorazepam prn. Monitor for withdrawal. Start Norvasc 5mg daily as BP with elevation. Culturelle started yesterday to help decrease risk for diarrhea. Encourage working on tobacco cessation - has nicotine patch, not sure if helping much. Possible taper in near future. Monitor for post op nausea. Zofran available prn. Continue with supportive post op care. 07/27/17 Plan Continue cefepime and vancomycin for antimicrobial coverage wound culture positive for Pseudomonas sensitive to Cefepime Wound Vac placed 07/[address] Giron to assist with wound healing Serax 15mg for alcohol withdrawal. No evidence of acute symptoms Given elevated Bp. Norvasc was started last evening. BP this morning 161/76. May need to increase dose. Encourage working on tobacco cessation. Nicotine patch topically Labs stable Discuss with CM regarding discharge plan with wound vac Plan-07/28/17 Overall, the patient appears to be doing well and making gains. Wound vac changed to base of amputated right great toe/foot today at which time he admits to increased pain. Wound vac continues to drain serosanguineous drainage. Continue wound treatment per Dr. Giron and wound care team. Continue cefepime and vancomycin for antimicrobial treatment. Wound culture revealed coag negative staph. Blood cultures remain negative after 3 days. Oral intake is good. Will discontinue LR at 50cc/hr and continue to encourage oral intake. Continue to encourage smoking cessation. He has refused the nicotine patch. Discussed potential outpatient options including Chantix and/ or Wellbutrin to encourage continued smoking cessation. Will initiate Wellbutrin SR today and recommend continuation x8-12 weeks. Overall, he is doing well. Will recheck labs in AM to monitor blood counts, electrolytes and renal function. <Roc Green D - Last Filed: 07/28/17 15:11> Objective Vital signs: Temperature 97.9 F 07/28/17 11:42 Pulse Rate 65 07/28/17 11:42 Respiratory Rate 22 07/28/17 11:42 Blood Pressure 145/85 H 07/28/17 11:42 Pulse Oximetry 96 07/28/17 11:42 Height/Weight/BMI: Height 1.83 m Weight 93.5 kg Body Mass Index 27.5 Results - Labs CBC & Chem 7: 07/26/17 04:18 07/28/17 09:15 Microbiology Results: Microbiology 07/25/17 12:05 Peripheral/Iv Start Blood Culture - Preliminary No Growth After 3 Days 07/25/17 12:08 Peripheral/Iv Start Blood Culture - Preliminary No Growth After 3 Days 07/26/17 13:56 Foot, Right Tissue Gram Stain - Final 07/26/17 13:56 Foot, Right Tissue Surgical Culture - Preliminary Coag negative Staphylococcus Assessment and Plan (1) Status post amputation of great toe Current visit: Yes Status: Acute (2) Wound infection Current visit: Yes Status: Acute Assessment and Plan: Assessment Wound Infection- Right great toe Wound debridement and wound vac placement 07/26/17. S/P Right great toe amputation- 07/13/17. Neuropathy, chronic. Chronic tobacco dependence. Daily alcohol use. HTN - elevated blood pressure. Overweight with BMI 27.5. Have independently interviewed and examined pt. Chart reviewed. Case discussed with my PA. Above care plan developed with my supervision; agree with above. Doing well today. Did have a lot of pain with wound vac change this am. Overall , pain controlled. Breathing well-not SOA or congested. Eating well-no ab pain or nausea. Stools moving. Urinating well. Lungs: clear, no distress on RA CV: regular AB: soft nt/nd +BS EXT: wound vac present to with foot - no edema of legs MSE: awake alert appropriate Plan: Continue antimicrobial coverage Continue wound vac. Encourage tobacco cessation - patient open to Wellbutrin. D/C IVF as oral drive doing well. Hospital Course Summary Disclaimer: The visit summary below is not to be considered part of the above Progress Note.
[2017-07-28] MEDS: LR 1,000 ML IV SCH (15:28)
[2017-07-28] MEDS: BuPROPion SR 150mg (12HR) TABLET PO SCH (18:26)
[2017-07-28] MEDS: NS FLUSH BAG 500ml IV PRN (20:55)
[2017-07-28] MEDS: OXAZEPAM 15 MG CAPSULE PO SCH (20:58)
[2017-07-29] MEDS: HYDROCODONE/APAP 7.5 MG/325 MG TABLET PO PRN ×5 (01:08→21:50)
[2017-07-29] MEDS: CEFEPIME 1 GM in NS 100 ML IV SCH ×2 (04:07→08:59)
[2017-07-29] MEDS: ENOXAPARIN 40 MG/0.4 ML INJECTION SQ SCH (08:58)
[2017-07-29] MEDS: BuPROPion SR 150mg (12HR) TABLET PO SCH ×2 (08:58→21:44)
[2017-07-29] MEDS: LACTOBACILLUS (15B cfu) CAPSULE PO SCH ×3 (08:58→17:17)
[2017-07-29] MEDS: AMLODIPINE 5 MG TABLET PO SCH ×2 (08:59→23:59)
[2017-07-29] MEDS: NICOTINE 21 MG PATCH TD SCH (09:00)
[2017-07-29] MEDS: NICOTINE PATCH REMOVAL TD SCH (09:00)
--- NOTE | 2017-07-29 09:10 | Progress Note ---
<Doris Lujan - Last Filed: 07/29/17 09:04> Subjective: Patient seen today sitting up in bed after breakfast. He states his appetite is good. Bowels are moving. He has no complaints. He is on [place] for the pain in his foot. He states he had quite a bit of pain with the wound VAC change yesterday. Nurses report that it appears to be leaking so they're going to try to change it out again today. He continues to decline nicotine patch for nicotine withdrawal. Is having no signs of alcohol withdrawal. Objective Vital signs: Temperature 97.2 F 07/29/17 07:54 Pulse Rate 57 L 07/29/17 07:54 Respiratory Rate 20 07/29/17 07:54 Blood Pressure 166/85 H 07/29/17 07:54 Pulse Oximetry 98 07/29/17 07:54 Rhythm: Sinus Bradycardia Height/Weight/BMI: Height 1.83 m Weight 93.4 kg Body Mass Index 27.5 - Constitutional Present: no acute distress, well nourished, well developed - Routine Respiratory Exam Present: CTA bilaterally. Absent: wheezes - Routine Cardiovascular Exam Present: RRR, S1, S2. Absent: murmur - Routine Abdominal Exam Present: soft, normoactive bowel sounds, non distended. Absent: tenderness - Routine Extremities Exam Present: edema (trace to 1+ right foot), normal capillary refill, amputation ( right great toe) - Routine Skin Exam Present: dry, warm - Routine Neurological Exam Present: alert, oriented X3 - Routine Lymphatic Exam Lymphatic: Absent: adenopathy - Routine Psychiatric Exam Present: normal affect, normal thought process, cooperative Results - Labs CBC & Chem 7: 07/29/17 04:07 07/29/17 04:07 Microbiology Results: Microbiology 07/26/17 13:56 Foot, Right Tissue Surgical Culture - Final Pseudomonas aeruginosa-sensitive to all tested. Coag negative Staphylococcus 07/25/17 12:05 Peripheral/Iv Start Blood Culture - Preliminary No Growth After 3 Days 07/25/17 12:08 Peripheral/Iv Start Blood Culture - Preliminary No Growth After 3 Days Assessment and Plan (1) Status post amputation of great toe Current visit: Yes Status: Acute (2) Wound infection Current visit: Yes Status: Acute Assessment and Plan: Assessment Wound Infection- Right foot (previous great toe amputation site) Wound debridement and wound vac placement 07/26/17. S/P Right great toe amputation- 07/13/17. Neuropathy, chronic. Chronic tobacco dependence. Daily alcohol use. HTN - elevated blood pressure. -Amlodipine initiated 07/26/17. Overweight with BMI 27.5. Plan Blood pressures still elevated. Increase amlodipine to 10 mg daily Continue antibiotics for wound infection. Tolerating Wellbutrin which was started for smoking cessation. He continues to decline nicotine patch. Hospital Course Summary Disclaimer: The visit summary below is not to be considered part of the above Progress Note. Hospital Course: 07/25/17 Admission Impression Wound Infection- Right great toe S/P Right great toe amputation- 07/13/17 Neuropathy Chronic tobacco dependence Hypertension-amlodipine initiated 07/26/17 Daily alcohol use Plan Orthopedic management as per Dr. Giron Obtain CBC, CMP, blood culture 2, venous lactate, pro calcitonin, Hgb A1C and urinalysis on admission. Will initiate antibiotic coverage including vancomycin and cefepime. Wound culture reviewed from 07/13 that was positive for Pseudomonas and Corynebacterium species. Old culture from April 2017 was positive for both strep and staph. [place] as needed for pain control Nicotine patch topically in light of chronic tobacco use. Monitor for evidence of ETOH withdrawal. Patient is a daily drinker however denies any history of withdrawal symptoms. NPO after midnight as Dr Giron is planning further surgical evaluation and wound care. Recheck CBC and BMP tomorrow morning to follow blood counts, renal function and electrolytes. Will consult CM to assist with establishing care with PCP in the outpatient setting. 07/26/17 OP DAY Continue with wound vac to facilitate wound healing. Continue cefepime and vancomycin for antimicrobial coverage. Serax 15mg started last night due to his chronic ETOH use. Lorazepam prn. Monitor for withdrawal. Start Norvasc 5mg daily as BP with elevation. Culturelle started yesterday to help decrease risk for diarrhea. Encourage working on tobacco cessation - has nicotine patch, not sure if helping much. Possible taper in near future. Monitor for post op nausea. Zofran available prn. Continue with supportive post op care. 07/27/17 Continue cefepime and vancomycin for antimicrobial coverage wound culture positive for Pseudomonas sensitive to Cefepime Wound Vac placed 07/[address] Giron to assist with wound healing Serax 15mg for alcohol withdrawal. No evidence of acute symptoms Given elevated Bp. Norvasc was started last evening. BP this morning 161/76. May need to increase dose. Encourage working on tobacco cessation. Nicotine patch topically Labs stable Discuss with CM regarding discharge plan with wound vac 07/28/17 Overall, the patient appears to be doing well and making gains. Wound vac changed to base of amputated right great toe/foot today at which time he admits to increased pain. Wound vac continues to drain serosanguineous drainage. Continue wound treatment per Dr. Giron and wound care team. Continue cefepime and vancomycin for antimicrobial treatment. Wound culture revealed coag negative staph. Blood cultures remain negative after 3 days. Oral intake is good. Will discontinue LR at 50cc/hr and continue to encourage oral intake. Continue to encourage smoking cessation. He has refused the nicotine patch. Discussed potential outpatient options including Chantix and/ or Wellbutrin to encourage continued smoking cessation. Will initiate Wellbutrin SR today and recommend continuation x8-12 weeks. Overall, he is doing well. Will recheck labs in AM to monitor blood counts, electrolytes and renal function. 07/29/17 Blood pressures still elevated. Increase amlodipine to 10 mg daily Continue antibiotics for wound infection. Tolerating Wellbutrin which was started for smoking cessation. He continues to decline nicotine patch. <Roc Green - Last Filed: 07/29/17 19:18> Objective Vital signs: Temperature 96.4 F L 07/29/17 15:05 Pulse Rate 64 07/29/17 16:30 Respiratory Rate 16 07/29/17 15:05 Blood Pressure 158/76 H 07/29/17 15:05 Pulse Oximetry 98 07/29/17 15:05 Height/Weight/BMI: Height 1.83 m Weight 93.4 kg Body Mass Index 27.5 Results - Labs CBC & Chem 7: 07/29/17 04:07 07/29/17 04:07 Microbiology Results: Microbiology 07/25/17 12:05 Peripheral/Iv Start Blood Culture - Preliminary No Growth After 4 Days 07/25/17 12:08 Peripheral/Iv Start Blood Culture - Preliminary No Growth After 4 Days 07/26/17 13:56 Foot, Right Tissue Gram Stain - Final 07/26/17 13:56 Foot, Right Tissue Surgical Culture - Final Pseudomonas aeruginosa Coag negative Staphylococcus Assessment and Plan (1) Status post amputation of great toe Current visit: Yes Status: Acute (2) Wound infection Current visit: Yes Status: Acute Assessment and Plan: Assessment Wound Infection- Right foot (previous great toe amputation site) Wound debridement and wound vac placement 07/26/17. S/P Right great toe amputation- 07/13/17. Neuropathy, chronic. Chronic tobacco dependence. Daily alcohol use. HTN - amlodipine initiated 07/26/17. Overweight with BMI 27.5. Have independently interviewed and examined pt. Chart reviewed. Case discussed with my PA. Above care plan developed with my supervision; agree with above. Doing well. Pain controlled except when wound vac gets changed. Eating well. Stools stable. Breathing well. Lungs: clear bilaterally CV: regular AB: soft nt/nd +BS MSE: awake alert appropriate Plan: Culture results back - Pseudomonas growing. Ortho stopped cefepime to change to levofloxacin in anticipation of outpatient antibiotic use. On Norvasc 10mg for BP - still showing elevation. No signs of ETOH withdrawal - will continue Serax at night. - Time spent with patient Time with patient PN: 25 minutes Hospital Course Summary Disclaimer: The visit summary below is not to be considered part of the above Progress Note.
[2017-07-29] MEDS: HYDROMORPHONE 2 MG/ML INJECTION IVP PRN (10:30)
[2017-07-29] MEDS: SALINE FLUSH 10ml SYRINGE IV PRN ×2 (10:30→22:31)
--- NOTE | 2017-07-29 11:00 | Orthopedic Progress Note ---
Date: Subjective/Severity of Illness: Patient is doing well this morning. No new complaints. No pain. Culture results show Coag neg Staph and Pseudomonas. Sensitivities show Levaquin has a PAU then Cefepime. Discussed with Miriam, we will change to IV Levaquin in anticipation of using it PO on an outpatient basis. Orthopedic Objective PO Vital signs: Temperature 97.2 F 07/29/17 07:54 Pulse Rate 63 07/29/17 09:09 Respiratory Rate 20 07/29/17 07:54 Blood Pressure 166/85 H 07/29/17 07:54 Pulse Oximetry 98 07/29/17 07:54 Height and Weight: Height 6 ft Weight 205 lb 14.588 oz Body Mass Index 27.5 - Constitutional General Appearance: Present: alert, orientated x3 - Respiratory Exam Present: non-labored - Abdominal Exam Present: soft. Absent: tenderness - Extremities Exam Extremities: Absent: calf tenderness, Shirley's sign - Surgical Site Incision: clean, dry, intact - Lymphatic Lymphatic: Absent: adenopathy - Wound Management Right Great Toe Wound Type: Surgical Incision Primary Dressing: wound VAC Dressing Change Patient Tolerance: Tolerated Well - Labs Result Diagrams: 07/29/17 04:07 07/29/17 04:07 Abnormal lab results 07/29/17 07/29/17 Range/Units 04:07 04:07 RBC 4.19 L (4.50-5.90) M/MM3 Hgb 13.4 L (13.5-17.5) GM/DL Hct 40.5 L (41-53) % [place] % (Auto) 11.0 H (0-9.0) % Eos % (Auto) 4.1 H (0-4) % BUN 8.0 L (9-20) MG/DL Creatinine 0.7 L (0.8-1.5) MG/DL H & H 07/25/17 07/26/17 07/29/17 Range/Units 12:05 04:18 04:07 Hgb 13.8 13.7 13.4 L (13.5-17.5) GM/DL Hct 41.4 42.1 40.5 L (41-53) % Coagulation 07/25/17 Range/Units 12:05 INR 1.06 (0.99-1.21) Orthopedic Assessment and Plan (1) Status post amputation of great toe Status: Acute (2) Wound infection Status: Acute Assessment and Plan: Switch to IV Levaquin as per sensitivities . Continue wound VAC dressing. Wound VAC was changes yesterday. Dr. Giron to reassess on Sunday if wound VAC ss needed as an outpatient. - Anticoagulation Therapy Anticoagulation: Lovenox 40 mg SQ Daily x 30 days from day of surgery Hospital Course Summary Disclaimer: The visit summary below is not to be considered part of the above Progress Note. Hospital Course: 07/25/17 Admission Impression Wound Infection- Right great toe S/P Right great toe amputation- 07/13/17 Neuropathy Chronic tobacco dependence Hypertension-amlodipine initiated 07/26/17 Daily alcohol use Plan Orthopedic management as per Dr. Giron Obtain CBC, CMP, blood culture 2, venous lactate, pro calcitonin, Hgb A1C and urinalysis on admission. Will initiate antibiotic coverage including vancomycin and cefepime. Wound culture reviewed from 07/13 that was positive for Pseudomonas and Corynebacterium species. Old culture from April 2017 was positive for both strep and staph. [place] as needed for pain control Nicotine patch topically in light of chronic tobacco use. Monitor for evidence of ETOH withdrawal. Patient is a daily drinker however denies any history of withdrawal symptoms. NPO after midnight as Dr Giron is planning further surgical evaluation and wound care. Recheck CBC and BMP tomorrow morning to follow blood counts, renal function and electrolytes. Will consult CM to assist with establishing care with PCP in the outpatient setting. 07/26/17 OP DAY Continue with wound vac to facilitate wound healing. Continue cefepime and vancomycin for antimicrobial coverage. Serax 15mg started last night due to his chronic ETOH use. Lorazepam prn. Monitor for withdrawal. Start Norvasc 5mg daily as BP with elevation. Culturelle started yesterday to help decrease risk for diarrhea. Encourage working on tobacco cessation - has nicotine patch, not sure if helping much. Possible taper in near future. Monitor for post op nausea. Zofran available prn. Continue with supportive post op care. 07/27/17 Continue cefepime and vancomycin for antimicrobial coverage wound culture positive for Pseudomonas sensitive to Cefepime Wound Vac placed 07/[address] Giron to assist with wound healing Serax 15mg for alcohol withdrawal. No evidence of acute symptoms Given elevated Bp. Norvasc was started last evening. BP this morning 161/76. May need to increase dose. Encourage working on tobacco cessation. Nicotine patch topically Labs stable Discuss with CM regarding discharge plan with wound vac 07/28/17 Overall, the patient appears to be doing well and making gains. Wound vac changed to base of amputated right great toe/foot today at which time he admits to increased pain. Wound vac continues to drain serosanguineous drainage. Continue wound treatment per Dr. Giron and wound care team. Continue cefepime and vancomycin for antimicrobial treatment. Wound culture revealed coag negative staph. Blood cultures remain negative after 3 days. Oral intake is good. Will discontinue LR at 50cc/hr and continue to encourage oral intake. Continue to encourage smoking cessation. He has refused the nicotine patch. Discussed potential outpatient options including Chantix and/ or Wellbutrin to encourage continued smoking cessation. Will initiate Wellbutrin SR today and recommend continuation x8-12 weeks. Overall, he is doing well. Will recheck labs in AM to monitor blood counts, electrolytes and renal function. 07/29/17 Blood pressures still elevated. Increase amlodipine to 10 mg daily Continue antibiotics for wound infection. Tolerating Wellbutrin which was started for smoking cessation. He continues to decline nicotine patch.
[2017-07-29] MEDS: FOLIC ACID 1 MG TABLET PO SCH (11:01)
[2017-07-29] MEDS: LEVOFLOXACIN PB 500 MG/100 ML BAG IV SCH (11:56)
[2017-07-29] MEDS ORDERED: CEFEPIME 1 GM in NS 100 ML IV SCH (15:45)
[2017-07-29] MEDS: OXAZEPAM 15 MG CAPSULE PO SCH (21:44)
[2017-07-30] MEDS: SALINE FLUSH 10ml SYRINGE IV PRN ×2 (00:57→06:29)
[2017-07-30] MEDS: HYDROCODONE/APAP 7.5 MG/325 MG TABLET PO PRN ×3 (04:23→16:18)
[2017-07-30] MEDS: FOLIC ACID 1 MG TABLET PO SCH (08:31)
[2017-07-30] MEDS: BuPROPion SR 150mg (12HR) TABLET PO SCH (08:31)
[2017-07-30] MEDS: ENOXAPARIN 40 MG/0.4 ML INJECTION SQ SCH (08:31)
[2017-07-30] MEDS: NICOTINE 21 MG PATCH TD SCH (08:32)
[2017-07-30] MEDS: LACTOBACILLUS (15B cfu) CAPSULE PO SCH ×2 (08:32→13:05)
[2017-07-30] MEDS: AMLODIPINE 5 MG TABLET PO SCH (08:32)
[2017-07-30] MEDS: NICOTINE PATCH REMOVAL TD SCH (08:32)
[2017-07-30] MEDS ORDERED: MORPHINE SULFATE 2mg INJECTION IVP PRN (08:57)
[2017-07-30] MEDS ORDERED: AMLODIPINE 10 MG TABLET PO SCH (09:00)
--- NOTE | 2017-07-30 09:43 | Progress Note ---
<Sangeetha Knight V - Last Filed: 07/30/17 09:38> Subjective: Donovan is seen this morning in follow-up consultation. He is doing good and in good spirits. Ortho planning to change wound vac later today and re-examine right foot wound. BP continues to be elevated despite Norvasc dosing. Overnight hospitalists added another 5 mg daily with a total of 15mg. Objective Vital signs: Temperature 98.0 F 07/30/17 08:00 Pulse Rate 74 07/30/17 08:00 Respiratory Rate 18 07/30/17 08:00 Blood Pressure 169/79 H 07/30/17 08:00 Pulse Oximetry 99 07/30/17 08:00 Height/Weight/BMI: Height 1.83 m Weight 94.4 kg Body Mass Index 27.5 - Constitutional Present: no acute distress, well nourished, well developed - Routine HEENT Exam Eye: Present: EOMI ENT: Present: mucous membranes moist, dentition normal - Routine Respiratory Exam Present: CTA bilaterally. Absent: wheezes - Routine Cardiovascular Exam Present: RRR, S1, S2. Absent: murmur - Routine Abdominal Exam Present: soft, normoactive bowel sounds, non distended. Absent: tenderness - Routine Extremities Exam Present: full ROM, normal capillary refill Comments: Right foot wound Vac - Routine Skin Exam Present: intact, dry, warm - Routine Neurological Exam Present: alert, oriented X3, CN II-XII intact - Routine Lymphatic Exam Lymphatic: Absent: adenopathy - Routine Psychiatric Exam Present: normal affect, normal thought process, cooperative Results - Labs CBC & Chem 7: 07/29/17 04:07 07/29/17 04:07 Microbiology Results: Microbiology 07/25/17 12:05 Peripheral/Iv Start Blood Culture - Preliminary No Growth After 4 Days 07/25/17 12:08 Peripheral/Iv Start Blood Culture - Preliminary No Growth After 4 Days 07/26/17 13:56 Foot, Right Tissue Gram Stain - Final 07/26/17 13:56 Foot, Right Tissue Surgical Culture - Final Pseudomonas aeruginosa Coag negative Staphylococcus Assessment and Plan (1) Status post amputation of great toe Status: Acute (2) Wound infection Status: Acute Assessment and Plan: Assessment Wound Infection- Right foot (previous great toe amputation site) Wound debridement and wound vac placement 07/26/17. S/P Right great toe amputation- 07/13/17. Neuropathy, chronic. Chronic tobacco dependence. Daily alcohol use. HTN - amlodipine initiated 07/26/17. Overweight with BMI 27.5. Plan Overnight hospitalist added additional 5mg of Norvasc, Totaling 15 mg. Will Decreased back to 10mg daily and add a second BP agent. Lisinopril 5 mg daily and continue to monitor blood pressures. Foot wound cultures revels Pseudomonas and Coag negative Staphylococcus. Continue on Levaquin and Vanco. No evidence of ETOH withdrawal. Continues on Serax only at HS. Awaiting for orthopedic team to reevaluate and change wound later today. This will determine discharge plan. Hospital Course Summary Disclaimer: The visit summary below is not to be considered part of the above Progress Note. Hospital Course: 07/25/17 Admission Impression Wound Infection- Right great toe S/P Right great toe amputation- 07/13/17 Neuropathy Chronic tobacco dependence Hypertension-amlodipine initiated 07/26/17 Daily alcohol use Plan Orthopedic management as per Dr. Giron Obtain CBC, CMP, blood culture 2, venous lactate, pro calcitonin, Hgb A1C and urinalysis on admission. Will initiate antibiotic coverage including vancomycin and cefepime. Wound culture reviewed from 07/13 that was positive for Pseudomonas and Corynebacterium species. Old culture from April 2017 was positive for both strep and staph. [place] as needed for pain control Nicotine patch topically in light of chronic tobacco use. Monitor for evidence of ETOH withdrawal. Patient is a daily drinker however denies any history of withdrawal symptoms. NPO after midnight as Dr Giron is planning further surgical evaluation and wound care. Recheck CBC and BMP tomorrow morning to follow blood counts, renal function and electrolytes. Will consult CM to assist with establishing care with PCP in the outpatient setting. 07/26/17 OP DAY Continue with wound vac to facilitate wound healing. Continue cefepime and vancomycin for antimicrobial coverage. Serax 15mg started last night due to his chronic ETOH use. Lorazepam prn. Monitor for withdrawal. Start Norvasc 5mg daily as BP with elevation. Culturelle started yesterday to help decrease risk for diarrhea. Encourage working on tobacco cessation - has nicotine patch, not sure if helping much. Possible taper in near future. Monitor for post op nausea. Zofran available prn. Continue with supportive post op care. 07/27/17 Continue cefepime and vancomycin for antimicrobial coverage wound culture positive for Pseudomonas sensitive to Cefepime Wound Vac placed 07/[address] Giron to assist with wound healing Serax 15mg for alcohol withdrawal. No evidence of acute symptoms Given elevated Bp. Norvasc was started last evening. BP this morning 161/76. May need to increase dose. Encourage working on tobacco cessation. Nicotine patch topically Labs stable Discuss with CM regarding discharge plan with wound vac 07/28/17 Overall, the patient appears to be doing well and making gains. Wound vac changed to base of amputated right great toe/foot today at which time he admits to increased pain. Wound vac continues to drain serosanguineous drainage. Continue wound treatment per Dr. Giron and wound care team. Continue cefepime and vancomycin for antimicrobial treatment. Wound culture revealed coag negative staph. Blood cultures remain negative after 3 days. Oral intake is good. Will discontinue LR at 50cc/hr and continue to encourage oral intake. Continue to encourage smoking cessation. He has refused the nicotine patch. Discussed potential outpatient options including Chantix and/ or Wellbutrin to encourage continued smoking cessation. Will initiate Wellbutrin SR today and recommend continuation x8-12 weeks. Overall, he is doing well. Will recheck labs in AM to monitor blood counts, electrolytes and renal function. 07/29/17 Blood pressures still elevated. Increase amlodipine to 10 mg daily Continue antibiotics for wound infection. Tolerating Wellbutrin which was started for smoking cessation. He continues to decline nicotine patch. 07/30/17 Overnight hospitalist added additional 5mg of Norvasc, Totaling 15 mg. Will Decreased back to 10mg daily and add a second BP agent. Lisinopril 5 mg daily and continue to monitor blood pressures. Foot wound cultures revels Pseudomonas and Coag negative Staphylococcus. Continue on Levaquin and Vanco. No evidence of ETOH withdrawal. Continues on Serax only at HS. Awaiting for orthopedic team to reevaluate and change wound later today. This will determine discharge plan. <Santa Winston - Last Filed: 07/30/17 18:13> Objective Vital signs: Temperature 98.7 F 07/30/17 16:00 Pulse Rate 70 07/30/17 16:00 Respiratory Rate 16 07/30/17 16:00 Blood Pressure 155/79 H 07/30/17 16:00 Pulse Oximetry 98 07/30/17 16:00 Height/Weight/BMI: Height 1.83 m Weight 94.4 kg Body Mass Index 27.5 Results - Labs CBC & Chem 7: 07/29/17 04:07 07/29/17 04:07 Microbiology Results: Microbiology 07/25/17 12:05 Peripheral/Iv Start Blood Culture - Final No Growth After 5 Days 07/25/17 12:08 Peripheral/Iv Start Blood Culture - Final No Growth After 5 Days 07/26/17 13:56 Foot, Right Tissue Gram Stain - Final 07/26/17 13:56 Foot, Right Tissue Surgical Culture - Final Pseudomonas aeruginosa Coag negative Staphylococcus Assessment and Plan (1) Status post amputation of great toe Status: Acute (2) Wound infection Status: Acute Assessment and Plan: I have independently evaluated and examined this patient. I reviewed the chart, the patient's history, and the GEM EXPERT/PA's documented findings as above. We discussed and formulated the assessment and plan as above with additions as below: Patient reports doing well and denies headache or epistaxis associated with hypertension. He's unsure if blood pressures have been elevated in the past as he typically doesn't see a physician. He denies tremors or anxiety has been eating well. He reported [facility] to have blood pressure monitored. Patient is alert and cooperative, speech is fluent Respirations nonlabored with good airflow, breath sounds clear Regular cardiac rhythm Edema of the right forefoot but no edema at the right ankle, wound VAC in place at site of recent right great toe amputation. Agree with initiation of lisinopril although I would be inclined to use slightly higher dose of lisinopril and decrease amlodipine to 5 mg daily. Medically stable for discharge on Levaquin. Hospital Course Summary Disclaimer: The visit summary below is not to be considered part of the above Progress Note. Addendum entered and electronically signed by Sangeetha Knight APRN 07/30/17 13 :38: Spoke with orthopedic team. Plan to discharge patient this afternoon. Will send patient home on Norvasc 5 milligrams daily and lisinopril 40 milligrams daily for blood pressure control. Also encourage patient to take Wellbutrin to help with tobacco cessation.
[2017-07-30] MEDS ORDERED: LISINOPRIL 5 MG TABLET PO SCH (09:45)
[2017-07-30] MEDS: LEVOFLOXACIN PB 500 MG/100 ML BAG IV SCH (11:45)
--- NOTE | 2017-07-30 13:05 | Infectious Disease Consult ---
Infectious Disease Consult Date of Consultation: 07/30/17 Requesting Physician: Kin Giron Reason for Consultation: antibiotic recs History of Present Illness: Mr. Martinez is a 52 y/o man known to me from the wound clinic. He has a h/o chronic wound plantar surface R great toe, changes consistent with Osteomyelitis on MRI, wound cultures 05/12/17 with heavy growth Strep dysgalactiae, S. epi. He also has a h/o daily alcohol use, and I have been reluctant to treat him with IV antibiotics through a PICC due to concern for noncompliance and sepsis. He was taken to the OR by Dr. Giron on 07/13 for amputation of the R great toe. Wound culture from that surgery grew Pseudomonas , sensitive to cipro, and Corynebacterium. The gram stain was polymicrobial. Pathology had negative margins. He was discharged on Augmentin. He was readmitted on 07/25 from the orthopedic clinic due to increased drainage, swelling and erythema at the right great toe site. Foot was noted to have a foul odor. Patient was admitted directly under the care of Dr. Giron for further inpatient evaluation and treatment. He was taken to the OR on 07/26 for I &D and was found to have an abscess. Wound culture grew Pseudomonas and CoNS. Blood cultures from 07/25 are NGTD. He has a wound VAC on. I was asked to help with his antibiotics. I happened to be able to see him when Dr. Giron was changing his wound VAC. Medications Home Medications Medication Instructions Recorded Confirmed Type Multivitamin [One Daily] 1 each PO DAILY 07/04/17 07/25/17 History Allergies Allergy/AdvReac Type Severity Reaction Status Date / Time No Known Allergies Allergy Verified 07/25/17 10:46 [facility] Patient Stated Medical History Peripheral Neuropathy Yes Hypertension Yes: pre op Chronic Obstructive Pulmonary Yes: presssumptive. patient hoarseness Disease (COPD) Sleep Apnea No Other Respiratory Yes: sinus congestion with seasonal allergies Other GI Yes: poss umbilical hernia Other Musculoskeletal Yes: chronic non healing wound to left great toe Cellulitis Yes MRSA Yes: possibly this wound Surgical History: Amputation Rt Big Toe 07-13-17 ([facility]) Family History: Family History (Last Reviewed 07/25/17 @ 09:51 by DAVEY Puente) Father Dementia Heart attack High blood pressure - Social History Smoking status: Current every day smoker Alcohol intake frequency: other (drinks daily, he has been vague about how much) Household members: spouse Review of Systems All systems PM: 10-point ROS was reviewed, no additional remarkable complaints except (pain at R great toe amputatio site) - Constitutional Constitutional: Absent: chills, fever(s), night sweats Exam Vital Signs: Temperature 98.2 F 07/30/17 11:02 Pulse Rate 65 07/30/17 11:02 Respiratory Rate 18 07/30/17 11:02 Blood Pressure 138/76 07/30/17 11:02 Pulse Oximetry 96 07/30/17 11:02 Height/Weight/BMI: Height 1.83 m Weight 94.4 kg Body Mass Index 27.5 - Constitutional Present: no acute distress, well nourished - Routine HEENT Exam Head: Present: normocephalic, atraumatic Eye: Present: EOMI, PERRL ENT: Present: mucous membranes moist Comments: dentition fair - Routine Neck Exam Present: supple. Absent: lymphadenopathy - Routine Respiratory Exam Present: CTA bilaterally. Absent: accessory muscle use - Routine Cardiovascular Exam Present: RRR. Absent: murmur - Routine Abdominal Exam Present: soft, normoactive bowel sounds, non distended. Absent: tenderness, rebound, guarding - Routine Extremities Exam Absent: cyanosis, clubbing, edema Comments: wound at R great toe amputation site with minimal surrounding erythema - Routine Skin Exam Present: intact, wounds (R great toe, amputation site, depth is 14mm, minimal surrounding erythema). Absent: rash Comments: facial erythema/flushing - Routine Neurological Exam Present: alert, CN II-XII intact. Absent: motor deficit - Routine Psychiatric Exam Present: normal affect Results - Labs CBC & Chem 7: 07/29/17 04:07 07/29/17 04:07 Microbiology Results: Microbiology 07/25/17 12:05 Peripheral/Iv Start Blood Culture - Final No Growth After 5 Days 07/25/17 12:08 Peripheral/Iv Start Blood Culture - Final No Growth After 5 Days 07/26/17 13:56 Foot, Right Tissue Gram Stain - Final 07/26/17 13:56 Foot, Right Tissue Surgical Culture - Final Pseudomonas aeruginosa Coag negative Staphylococcus Impression: Post-operative wound infection R great toe amputation site, s/p I&D 07/26/17, culture with Pseudomonas. Osteomyelitis R great toe, s/p amputation 07/13/17, wound culture with Pseudomonas. Pathology report showed negative margins. Chronic wound plantar surface R great toe, changes consistent with Osteomyelitis on MRI. H/o wound cultures 05/12/17 with heavy growth Strep dysgalactiae, S. epi. Peripheral neuropathy, suspect secondary to alcohol use. Chronic alcohol use. Tobaccoism. Recommendation: Recommend using either po levaquin 750mg daily, or cipro 750mg po bid. For now , I think his compliance might be better with a once-daily drug, so will continue levaquin, and change to po. I would recommend treating for at least 2 weeks, maybe longer. I'll see him in follow up in the Wound clinic.
--- NOTE | 2017-07-30 13:31 | Discharge Summary ---
Orthopedic Discharge Info Date of admission: 07/25/17 10:29 Attending Physician: Kin Giron MD Consults: 07/25/17 11:45 Physician Consult [CONS] Routine Consulting Provider: Roc Green Reason For Exam: Medical management Ordering Provider has Notified Foundry Worker Apprentice: Yes 07/25/17 13:13 Case Management Consult [CONS] Routine Reason For Exam: Needs to establish with PCP 07/30/17 11:37 Physician Consult [CONS] Routine Consulting Provider: Xena Scott Reason For Exam: S/P amputation right great toe. SSI. Ordering Provider has Notified Foundry Worker Apprentice: No - Discharge Diagnosis (1) Status post amputation of great toe Status: Acute (2) Wound infection Status: Acute - Procedures Procedures: I &D right great toe amputation site infection - Laboratory Result Diagrams: 07/29/17 04:07 07/29/17 04:07 Laboratory: H & H 07/25/17 07/26/17 07/29/17 Range/Units 12:05 04:18 04:07 Hgb 13.8 13.7 13.4 L (13.5-17.5) GM/DL Hct 41.4 42.1 40.5 L (41-53) % Coagulation 07/25/17 Range/Units 12:05 INR 1.06 (0.99-1.21) - Microbiology Microbiology 07/25/17 12:05 Peripheral/Iv Start Blood Culture - Final No Growth After 5 Days 07/25/17 12:08 Peripheral/Iv Start Blood Culture - Final No Growth After 5 Days 07/26/17 13:56 Foot, Right Tissue Gram Stain - Final 07/26/17 13:56 Foot, Right Tissue Surgical Culture - Final Pseudomonas aeruginosa Coag negative Staphylococcus Orthopedic Discharge HPI - HPI Comments 52 year old male developed an infection in his right toe amputation site. He failed conservative care. He was admitted for I&D and IV antibiotics. Orthopedic Hospital Course Hospital course: 07/30/17 13:30 Right great toe amputation site underwent I&D by Dr. Giron on 07/26/17. Sensitivities showed pseudomonas and coag negative staph sensitive to Levaquin. Dr. Scott was consulted and recommended an at least 2 week course of Levaquin. Wound vac was changed before discharge and follow up was made in the wound care clinic. Appropriate pain control, mobility was achieved before discharge. Anticoagulants were provided for DVT prevention. The medical service was consulted during the stay for comorbidities. Please see their notes for specifics. 07/30/17 13:31 07/30/17 13:32 Ongoing care required?: No - Postoperative Anemia patient received IVF, labs monitored daily, no intervention required, HGB drop- acceptable Discharge Plan - Med Rec/Dispo Additional Instructions: Keep taking 2 blood pressure medications. Norvasc and Lisinopril Establish and follow up with PCP at [facility]. Avoid tobacco and Alcohol use. Take Wellbutrin to assist with tobacco cessation. Prescriptions: New Folic Acid [Folate] 1 mg PO DAILY tablet Lisinopril [Prinivil] 40 mg PO DAILY #30 tab Hydrocodone/APAP 7.5/325 [[place] 7.5/325] 1 tab PO Q4H PRN #100 tab PRN Reason: Pain Levofloxacin [Levaquin] 750 mg PO ACB #14 tab BuPROPion SR [Wellbutrin Sr] 150 mg PO BID #30 tablet.er Amlodipine Besylate [Norvasc] 5 mg PO DAILY #30 tab Aspirin *EC* [Ecotrin] 1 tab PO BID #84 tab Continue Multivitamin [One Daily] 1 each PO DAILY Discontinued Amoxicillin/Potassium Clav [Augmentin 875-125 Tablet] 1 each PO Q12H #10 tab Hydrocodone/APAP 5/325 [[place] 5/325] 1 - 2 tab PO Q4H PRN #30 tab PRN Reason: Pain - Disposition 01 Discharged Home, Self-Care
--- NOTE | 2017-07-30 13:36 | Discharge Instructions ---
Discharge Plan - Med Rec/Dispo Additional Instructions: Keep taking 2 blood pressure medications. Norvasc and Lisinopril Establish and follow up with PCP at [facility]. Avoid tobacco and Alcohol use. Take Wellbutrin to assist with tobacco cessation. Prescriptions: New Folic Acid [Folate] 1 mg PO DAILY tablet Lisinopril [Prinivil] 40 mg PO DAILY #30 tab BuPROPion SR [Wellbutrin Sr] 150 mg PO BID #30 tablet.er Amlodipine Besylate [Norvasc] 5 mg PO DAILY #30 tab No Action Multivitamin [One Daily] 1 each PO DAILY Amoxicillin/Potassium Clav [Augmentin 875-125 Tablet] 1 each PO Q12H #10 tab Hydrocodone/APAP 5/325 [[place] 5/325] 1 - 2 tab PO Q4H PRN #30 tab PRN Reason: Pain
[2017-07-30 16:26] VITALS: BP 155/79; RESP 16; TEMP 98.7; O2SAT 98
[2017-07-30 16:28] VITALS: PULSE 70
--- NOTE | 2017-07-30 16:53 | Wound Care Progress Note ---
Wound Management - Patient Status Premedicated Prior to Dressing Change: No - Wound Left Great Toe Wound Present on Admission?: Yes Wound Bed Appearance: Beefy Red Tunneling: No Undermining: No Drainage Description: Serosanguineous Drainage Amount: Moderate Drainage Odor: No Odor Dressing Status: Changed Packing Type: Woundvac Sponge Number of Packing Pieces Placed?: 1 Primary Dressing: Trac Pad Secondary Dressing: Transparent Drape Dressing Change Date: 07/30/17 Dressing Change Time: 15:00 Dressing Change Patient Tolerance: Tolerated Well (Follow up on at wound clinic.) Microbiology: Microbiology 07/25/17 12:05 Peripheral/Iv Start Blood Culture - Final No Growth After 5 Days 07/25/17 12:08 Peripheral/Iv Start Blood Culture - Final No Growth After 5 Days
[2017-07-31] MEDS ORDERED: LEVOFLOXACIN 750 MG TABLET PO SCH (06:30)
== END 2017-07-30 17:25 | disposition home or self-care (01) | DRG 858 ==
LOC: PREOBSVTOIN 10:29 → SRG 10:29
PROVIDERS: ADMIT Orthopaedic Surgery; ATTEND Orthopaedic Surgery